=== PATIENT | male | born 1930 | race African-American/Black ===

== ENCOUNTER 2018-10-04 04:05 | Inpatient (IN) | payer OTHER ==
[~2018-10-04] VITALS: Ht 180.3 cm; Wt 106.6 kg
--- NOTE | ~2018-10-04 | O ---
[facility] [place] [address] OPERATIVE REPORT Name: FREDRICK HE Edelmira Room #: 208-P [facility] IN M.R.#: [id number] Admission: 10/04/18 ������������������ Attend Phys: Evan Wisdom MD Discharge: ������������������ Date of : [birth year] Report #: [id number] THIS REPORT FOR: //name// CC: FAM unknown Evan Wisdom DATE OF SERVICE: 10/09/2018 PREOPERATIVE DIAGNOSIS: Chronic cholecystitis. POSTOPERATIVE DIAGNOSIS: Chronic cholecystitis. PROCEDURE: Laparoscopic cholecystectomy. SURGEON: Keagan Ignacio MD ANESTHESIA: General. ESTIMATED BLOOD LOSS: Minimal. SPECIMEN: Gallbladder. DESCRIPTION OF PROCEDURE: After informed consent was obtained, the patient was brought to the operating room and placed supine. SCDs were placed and working, preoperative antibiotics were administered, general anesthesia was induced. The abdomen was prepped and draped in the usual sterile fashion. A 10 mm incision was made above the umbilicus. Fascia was incised and a trocar was placed. Pneumoperitoneum was established. There were some adhesions around the umbilicus, which were taken down bluntly. This was of omentum. Three right upper quadrant 5 mm ports were placed. The patient was placed in reverse Trendelenburg position. The gallbladder was grasped and retracted cephalad. Infundibulum was grasped and retracted laterally. I dissected out the cystic duct and cystic artery. Cystic duct and artery were clipped and ligated leaving 2 clips on the remaining duct and one on the remaining artery. Gallbladder was then taken off the liver bed with electrocautery. It was placed into an Endopouch and removed. The fascia was then closed with a [id number] 0 Vicryl. Skin was closed with 4-0 Monocryl. Incisions were sealed with Dermabond. COMPLICATIONS: None. DISPOSITION: The patient was taken to recovery in satisfactory condition. ��������������������������������������������� ���������������������������������������� By: ��������������������������������������������� 1232 1237 Keagan Ignacio MD /nt
[2018-10-04 04:20] VITALS: BP 158/60
[2018-10-04] MEDS ORDERED: LIPITOR10 MG PO (04:27)
[2018-10-04] MEDS ORDERED: LISINOPRIL20 MG PO (04:28)
[2018-10-04] MEDS ORDERED: SYNTHROID112 MC1 PO (04:28)
[2018-10-04] MEDS ORDERED: HYDRALAZINE 2525 MG PO (04:29)
[2018-10-04] MEDS ORDERED: NISOLDIPINE34 MG PO (04:30)
[2018-10-04] MEDS ORDERED: ASPIR 8181 MG PO (04:30)
[2018-10-04 05:12] LABS: HEMOGLOBIN 11.9 gm/dL (14.0-18.0); PLATELET COUNT 147 thou/uL (150-400); RDW 14.9 % (10.5-14.5)
[2018-10-04 05:14] LABS: HEMATOCRIT 36.5 % (42.0-52.0); MCH 28.6 pg (26.0-34.0); MCHC 32.7 g/dL (28.0-37.0); MCV 87.3 fL (80.0-100.0); RBC 4.18 mil/uL (4.50-6.00)
[2018-10-04 05:19] LABS: CALCIUM 9.4 mg/dL (8.5-10.1); CREATININE 2.1 mg/dL (0.7-1.3); POTASSIUM 3.2 mmol/L (3.5-5.1)
[2018-10-04 05:23] LABS: WBC 1.8 thou/uL (4.0-11.0)
[2018-10-04 06:13] LABS: ABSOLUTE NEUTROPHILS 1.5 thou/uL (1.4-8.2)
[2018-10-04 06:14] LABS: ANISOCYTOSIS 1+; PLATELET ESTIMATE DECREASED; POIKILOCYTOSIS 1+; POLYCHROMASIA 1+
[2018-10-04 06:17] LABS: URINE BILIRUBIN NEGATIVE (Negative); URINE BLOOD TRACE (Negative); URINE CLARITY CLEAR; URINE COLOR YELLOW; URINE GLUCOSE-RANDOM* NEGATIVE (Negative); URINE KETONES TRACE (Negative); URINE NITRITE-REFLEX NEGATIVE (Negative); URINE PROTEIN (DIPSTICK) 2+ (Negative); URINE SPECIFIC GRAVITY 1.015 (1.005-1.035)
[2018-10-04 06:19] LABS: URINE LEUKOCYTES-REFLEX 1+ (Negative)
[2018-10-04 06:26] LABS: CASTS None Seen /LPF (None Seen); MUCUS 4-6 Moderate strn/LPF (None Seen); SQUAMOUS 4-10 Moderate /LPF (0-3)
[2018-10-04 06:27] LABS: URINE RBC 0-2 Rare /HPF (0-2)
[2018-10-04 06:28] LABS: CRYSTALS None Seen /LPF (None Seen)
[2018-10-04 09:02] LABS: ALBUMIN 3.4 g/dL (3.4-5.0); TOTAL PROTEIN 6.4 g/dL (6.4-8.2)
[2018-10-04 09:35] LABS: TSH 27.322 uIU/mL (0.358-3.740)
[2018-10-04 13:38] VITALS: BP 117/52
[2018-10-04 14:00] VITALS: BP 109/55
[2018-10-04 14:01] VITALS: BP 109/55
[2018-10-04 14:20] VITALS: BP 129/65
--- NOTE | 2018-10-04 17:31 | NUR ---
PT WAS AN ADMIT FOR SEPSIS ON ANTIBIOTICS FROM EMERGENCY ROOM . VS STABLE FAMILY AT BEDSIDE FOR SUPPORT. LUNGS ARE CLEAR. ABDOMEN SOFT EATING A HEART HEALTHY DIET. UP TO BATHROOM WITH ASSIST TO BSC DIARHEA X1. TEMPERATURE LOW GRADE. SCDS ON BIALTERAL. CALL LIGHT WITHIN REACH IF NEEDS ASSISTANCE FROM STAFF. WILL CONTINUE TO ASSESS AND MONITOR PER NURSING
[2018-10-04 20:05] VITALS: BP 107/54
[2018-10-05 04:41] LABS: CALCIUM 8.6 mg/dL (8.5-10.1); HEMATOCRIT 31.7 % (42.0-52.0); HEMOGLOBIN 10.6 gm/dL (14.0-18.0); MAGNESIUM 1.6 mg/dL (1.8-2.4); MCHC 33.5 g/dL (28.0-37.0); MCV 86.4 fL (80.0-100.0); RBC 3.67 mil/uL (4.50-6.00)
[2018-10-05 04:45] VITALS: BP 120/53
[2018-10-05 04:45] LABS: CREATININE 3.4 mg/dL (0.7-1.3); POTASSIUM 4.4 mmol/L (3.5-5.1)
[2018-10-05 04:48] LABS: WBC 22.6 thou/uL (4.0-11.0)
[2018-10-05 05:30] LABS: HEMATOCRIT 31.7 % (42.0-52.0); HEMOGLOBIN 10.3 gm/dL (14.0-18.0); MCH 28.4 pg (26.0-34.0); MCHC 32.6 g/dL (28.0-37.0); RBC 3.64 mil/uL (4.50-6.00); RDW 14.8 % (10.5-14.5)
[2018-10-05 05:41] LABS: CALCIUM 8.4 mg/dL (8.5-10.1); CREATININE 3.4 mg/dL (0.7-1.3); POTASSIUM 4.3 mmol/L (3.5-5.1)
--- NOTE | 2018-10-05 06:05 | NUR ---
PATIENTS CARES WERE ASSUMED AT SHIFT CHANGE. PATIENT WAS ASSESSED AND MEDS WERE PASSED. PATIENT DID GO FOR A CT WITH CONTRAST.LAD WORK WAS NOT NELIEVED MY NURSE PRACTIONER REDRAWS WERE ORDER FOR BMP AND CBC. HOURLY ROUNDING WAS DONE .THE BED IS IN A LOW AND LOCKED POSITION.
[2018-10-05 07:52] VITALS: BP 109/50
--- NOTE | 2018-10-05 11:17 | NUR ---
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 NPO FOR U/S OF ABDOMEN. NO COMPLAINTS OF PAIN OR NAUSEA OR DIZZINESS. APACED ON MONITOR INTERMITTENTLY. STAND BY ASSIST TO CHAIR. LITTLE DIFFICULTLY GETTING OUT OF BED BUT ONCE HE IS UP HE SEEMS STEADY. PER DR. MCKINNEY'S ORDER, BLADDER SCAN COMPLETED. < 50CC NOTED. PATIENT INSTRUCTED TO USE URINAL SO THAT WE CAN MEASURE OUTPUT. VERBALIZED UNDERSTANDING
--- NOTE | 2018-10-05 12:24 | HC ---
[facility] [place] [address] CONSULTATION Name: FREDRICK HE Edelmira Room #: 210-[facility] IN .R.#: [id number] Admission: 10/04/18 ������������������ Attend Phys: Evan Wisdom MD Discharge: ������������������ Date of : [birth year] Report #: [id number] THIS REPORT FOR: //name// CC: FAM unknown Evan Wisdom DATE OF SERVICE: 10/04/2018 INFECTIOUS DISEASE CONSULTATION REASON FOR CONSULTATION: I was asked to evaluate the patient concerning sepsis. HISTORY OF PRESENT ILLNESS: The patient is an 88-year-old with underlying history of hypertension, remote history of colon cancer and prostate cancer who presents with acute onset of rigors, fever, nausea and diarrhea presented to the Emergency Room and had a temperature of 38 degrees. He had a mild headache. No dysuria, frequency or hematuria. He was tachycardic on admission, but maintained adequate blood pressure. He was given IV fluids. Now in the CCU. He states feeling better. No further nausea. No further diarrhea. Denied any blood in his stool. No prior history of diverticular disease. No history of pyelonephritis. He does have a history of prostate cancer in the 1990s. He also had a colon resection for colon cancer during that same time period. He has had to travel to [place] last week. Lives with his . He has not had any issues with fever. Ate out two days ago. REVIEW OF SYSTEMS: Ten-point review is negative other than what is described above. He does note dyspnea with intermittent cough. No pleuritic chest pain. No sputum production. No palpitations or chest pain. ALLERGIES: None. MEDICATIONS: As noted on his MAR, now on Zosyn and azithromycin. PAST MEDICAL HISTORY: Hypertension, hyperlipidemia, hypothyroidism, colon cancer and prostate cancer. FAMILY HISTORY: Noncontributory. SOCIAL HISTORY: Nonsmoker, no significant alcohol intake. Retired from the . No animal exposure. No exposure to other ill persons. No tuberculosis exposure or HIV risk. PHYSICAL EXAMINATION: VITAL SIGNS: He was afebrile and hemodynamically stable. GENERAL: He is alert and cooperative and pleasant, in no acute distress. [facility] [address] [place] [address] CONSULTATION Name: FREDRICK HE Edelmira Room #: 210-P [facility] IN .R.#: [id number] Admission: 10/04/18 ������������������ Attend Phys: Evan Wisdom MD Discharge: ������������������ Date of : [birth year]/16/[birth year] Report #: [id number] Sitting up in his chair. He was obese. No peripheral adenopathy. No rashes or decubiti. HEENT: Eyes without scleral icterus. Mouth without mucositis. NECK: Supple, with no thyromegaly or mass. LUNGS: Few crackles in the bases bilaterally. HEART: Regular, without murmur, gallop or rub. ABDOMEN: Obese, soft, nontender with no hepatosplenomegaly or mass. No CVA tenderness. GENITALIA: External genitalia without mass lesion. RECTAL: Not performed. EXTREMITIES: Without clubbing, cyanosis or edema. Cranial nerves are intact. Strength in the upper and lower extremities are normal. NEUROLOGIC: Sensation intact. Mood is normal. LABORATORY STUDIES: Reviewed. Blood cultures 1 of 2 showing gram-negative bacilli. Urinalysis with pyuria and bacteriuria. Chest x-ray with basilar atelectasis, left chest permanent pacemaker. Lactate 4.4. TSH 27. Procalcitonin 0.9. IMPRESSION: 1. An 88-year-old with sepsis syndrome associated with gram-negative bacteremia 2. Acute kidney injury 3. Leukopenia. Source of which I am suspecting either pyelonephritis or intra-abdominal infection. 4. Hypertension. 5. Hyperlipidemia. 6. Permanent pacemaker. 7. Hypothyroidism. 8. Previous history of colon cancer and prostate cancer. RECOMMENDATIONS: We will continue with Zosyn. Serial laboratory studies. Remain in ccu for critical monitoring, 02 sats and fluid replacement. Image his abdomen and pelvis further with ct noncontrast. Adjust antibiotics pending cultures. Patient at risk for further complications. 60min. ��������������������������������������������� <ELECTRONICALLY SIGNED> ���������������������������������������� By: Salomón Sawant MD ��������������������������������������������� 10/05/18 1224 2202 0215 Salomón Sawant MD /nt
[2018-10-05 12:44] VITALS: BP 103/42
[2018-10-05 14:27] VITALS: BP 92/46
--- NOTE | 2018-10-05 15:07 | NUR ---
Chart reviewed and case discussed with the care team. Pt is sleeping this afternoon and spouse is not at bedside at this time. Pt lives at home with his spouse in a tri level home with 2 steps to enter. He is normally indep with gait and adl's and still drives. He helps with errands and some housekeeping. PT/OT evals noted. No assistive device or hh prior to admission. Will follow along should a home health referral be indicated at [place].
[2018-10-05 19:50] VITALS: BP 103/50
[2018-10-06 03:52] VITALS: BP 149/76
[2018-10-06 05:25] LABS: CREATININE 2.7 mg/dL (0.7-1.3); MAGNESIUM 1.9 mg/dL (1.8-2.4); POTASSIUM 3.8 mmol/L (3.5-5.1)
[2018-10-06 05:42] LABS: HEMATOCRIT 30.9 % (42.0-52.0); HEMOGLOBIN 10.2 gm/dL (14.0-18.0); MCH 28.5 pg (26.0-34.0); MCHC 33.1 g/dL (28.0-37.0); MCV 86.1 fL (80.0-100.0); RBC 3.59 mil/uL (4.50-6.00); RDW 14.8 % (10.5-14.5); WBC 20.5 thou/uL (4.0-11.0)
[2018-10-06 07:32] VITALS: BP 134/63
--- NOTE | 2018-10-06 08:21 | NUR ---
[facility]. PT/VITALS STABLE. BP RUNS SOFT. UP TO BATHROOM STB. DENIES ANY PAIN. ASSESSMENT CHARTED. ADEQUATE REST NOTED THROUGH NIGHT. TOLERATES CPAP AT NIGHT. PROGRESSING WELL WITH POC. PLAN IS TO CONTINUE WITH FLUIDS AND ANTIBIOTICS. WILL CONTINUE TO MONITOR AND FOLLOW WIHT POC
[2018-10-06 12:04] VITALS: BP 118/56
[2018-10-06 15:19] VITALS: BP 122/66
--- NOTE | 2018-10-06 16:21 | NUR ---
ASSUMED CARE AT 0700, SHIFT ASSESSMENT DONE, DENIES ANY PAIN, NAUSEA, VOMITING. UP WITH STANDBY ASSIST, SITTING IN THE CHAIR THIS AM. A-PACED ON THE MONITOR. HAD 700 ML OF URINE OUTPUT SO FAR OF 1630. ON IV FLUIDS AND ANTIBIOTICS. WILL CONTINUE TO ASSESS AND ASSIST WITH ADLs NEEDED.
[2018-10-06 20:15] VITALS: BP 152/58
--- NOTE | 2018-10-07 03:03 | NUR ---
ASSESSMENT: PT REMAIN ALERT AND ORIENT TIMES THREE. TWO SONS WERE AT THE BEDSIDE AT THE BEGINNING OF THE SHIFT. VSS, AFEBRILE. 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 POSSIBLE PIPIDA TEST FOR MONDAY. A-PACED PER MONITOR.. DENIES PAIN, SOB AND N/V. SLOW PROGRESS, WILL CONTINUE TO MONITOR.
[2018-10-07 04:45] VITALS: BP 154/83
[2018-10-07 05:50] LABS: HEMOGLOBIN 10.6 gm/dL (14.0-18.0); MCH 28.5 pg (26.0-34.0); MCHC 33.1 g/dL (28.0-37.0); MCV 86.2 fL (80.0-100.0); RBC 3.71 mil/uL (4.50-6.00); RDW 14.8 % (10.5-14.5)
[2018-10-07 05:58] LABS: ALBUMIN 2.3 g/dL (3.4-5.0); CALCIUM 8.2 mg/dL (8.5-10.1); CREATININE 1.8 mg/dL (0.7-1.3); MAGNESIUM 2.6 mg/dL (1.8-2.4); TOTAL BILIRUBIN 0.3 mg/dL (<0.1-1.0); TOTAL PROTEIN 5.7 g/dL (6.4-8.2)
[2018-10-07 07:03] VITALS: BP 134/66
[2018-10-07 11:26] VITALS: BP 127/58
--- NOTE | 2018-10-07 12:13 | HC ---
[facility] [place] [address] CONSULTATION Name: FREDRICK HE Room #: 210-[facility] IN ..#: [id number] Admission: 10/04/18 ������������������ Attend Phys: Evan Wisdom MD Discharge: ������������������ Date of : [birth year]/16/[birth year] Report #: [id number] THIS REPORT FOR: //name// CC: FAM unknown Evan Wisdom ENDOCRINE CONSULTATION The patient of Dr. Wisdom. SUBJECTIVE: An 88-year-old black male admitted for sepsis. Incidentally, the patient was found to have abnormal thyroid function studies, necessitating endocrine consultation. The patient is an extremely poor and forgetful historian and much of the information is taken from his who has more appropriate history available. The patient was diagnosed with hypothyroidism "many" years ago and has been on a variety of different doses of replacement since that time. He does not remember his current dosage, whether he is receiving 112 mcg of L-thyroxine during his hospitalization. The patient states he takes the medication at night along with several other agents including a multivitamin. He does admit to occasionally forgetting to take his dosage and does not make up missed doses. He remembers that approximately 4 months ago, he was told to take a larger dose of replacement, but does not know any of the dosage strength. Otherwise, the patient has no family history of thyroid disease and is unable to provide any other further endocrine history. OBJECTIVE: LABORATORY DATA: Since admission, free T4 was 1.0 and TSH was elevated at 27.3. There are no prior studies available for comparison. PHYSICAL EXAMINATION: Well-nourished, well-developed 88-year-old black male in no acute distress. The patient is alert, but unable to give a lucid answers to many questions. she is afebrile, heart rate 70 and regular, blood pressure 110/40. The thyroid is minimally enlarged without nodularity. It moves well with deglutition. Deep tendon reflexes are 2+ and equal bilaterally and the remainder of the exam is euthyroid. ASSESSMENT: Prior history of hypothyroidism with inadequate replacement. This may be due to the fact that the patient is taking his medication concurrently with the vitamins, which can conflict with thyroid replacement. In addition, he admits to missing "some" doses, which could obviously due to abnormal thyroid function studies. The patient's free T4 is in the low normal range. His TSH is only an indicator, was most likely missed doses, not inappropriate dosage. PLAN: I have discussed all the above with the patient and his family. I would suggest keeping a current replacement and repeating thyroid function studies at a later date. The patient will move his administration time to the morning, 30 minutes prior to any potential conflicting substances, totally accurate results [address] [address] CONSULTATION Name: FREDRICK HE Room #: 210-P [facility] IN M.R.#: [id number] Admission: 10/04/18 ������������������ Attend Phys: Evan Wisdom MD Discharge: ������������������ Date of : 06/16/30 Report #: [id number] will not be available before full 6 weeks from this administration change; however, it may be possible to check thyroid function at a later date to see whether it is progressing normally in an appropriate fashion. Thank you very much for this consultation. I will continue to follow the patient with you for thyroid disease. ��������������������������������������������� <ELECTRONICALLY SIGNED> ���������������������������������������� By: Yared Guerrero MD ��������������������������������������������� 10/07/18 1213 1416 2254 Yared Guerrero MD /nt
--- NOTE | 2018-10-07 12:59 | NUR ---
ASSUMED CARE AT 0700, SHIFT ASSESSMENT DONE, MEDS GIVEN, VSS. DENIES ANY PAIN, NAUSEA, VOMITING. ROOM AIR, LIZZETH ASSIST. APACED ON THE TELE. ACHS, WITHHOUT ANY COVERAGE. UP AND SITTING IN THE CHAIR THIS AM. RECEIVING IV FLUIDS AND ANTIBIOTCS. GENERAL SURGERY CONSULT, AWAITING TO BE SEEN. WILL CONTINUE TO ASSESS AND ASSIST WITH ADLs NEEDED.
[2018-10-07 15:27] VITALS: BP 142/52
[2018-10-07 20:40] VITALS: BP 149/60
[2018-10-08 05:13] LABS: HEMOGLOBIN 10.4 gm/dL (14.0-18.0); MCH 28.8 pg (26.0-34.0); MCHC 33.5 g/dL (28.0-37.0); MCV 85.7 fL (80.0-100.0); RBC 3.61 mil/uL (4.50-6.00); RDW 14.9 % (10.5-14.5); WBC 11.8 thou/uL (4.0-11.0)
[2018-10-08 05:31] LABS: CALCIUM 8.4 mg/dL (8.5-10.1); CREATININE 1.6 mg/dL (0.7-1.3); MAGNESIUM 2.5 mg/dL (1.8-2.4)
[2018-10-08 05:39] LABS: ALBUMIN 2.3 g/dL (3.4-5.0); CALCIUM 8.6 mg/dL (8.5-10.1); CREATININE 1.6 mg/dL (0.7-1.3); PHOSPHORUS 2.6 mg/dL (2.5-4.9); POTASSIUM 3.9 mmol/L (3.5-5.1)
[2018-10-08 05:40] VITALS: BP 156/72
[2018-10-08 07:28] VITALS: BP 156/96
--- NOTE | 2018-10-08 11:27 | NUR ---
Assess due to dx of sepsis likely GI source. Possible lap reyna. Overweight status, appetite >75% of meals. On B12 replacement for low level 180. Low nutrition risk at this time
[2018-10-08 12:34] VITALS: BP 173/62
[2018-10-08 15:40] VITALS: BP 138/60
--- NOTE | 2018-10-08 16:07 | NUR ---
ASSESSMENT CHARTED, VSS, ALERT AND ORIENTED, [place], NO COMPLAINTS OF PAIN, NS INFUSING IN R FA, WILL CONTINUE TO MONITOR
[2018-10-08 20:59] VITALS: BP 135/74
[2018-10-09 06:00] VITALS: BP 160/73
[2018-10-09 07:40] VITALS: BP 183/83
--- NOTE | 2018-10-09 08:09 | NUR ---
PT UP WITH ASSIST TO BR TO SHAVE AND CLEAN UP FOR BED THEN SLEPT WITHOUT ANY DIFFICULTY WITH HOME CPAP THRU THE NOC, NO C/O PAIN, VOIDING PER URINAL, VSS, NPO SINCE MNOC FOR PLANNED PROCEDURE TODAY, WILL CON'T TO MONITOR PER PPOC.
[2018-10-09 08:46] VITALS: BP 175/69
--- NOTE | 2018-10-09 11:52 | NUR ---
ASSUMED CARE AT 0700, SHIFT ASSESSMENT DONE, A&O*4, VERY HARD OF HEARING. NPO SINCE LAST NIGHT FOR LAP JURGEN TODAY. BP THIS AM WAS HIGH, BP MEDS GIVEN WITH SIPS OF WATER. ROOM AIR, M/S. DENEIS ANY PAIN, NAUSEA, VOMITING. LEFT FOR SURGERY AT 0930. WILL CONTINUE TO ASSESS AND ASSIST WITH ADLs NEEDED.
[2018-10-09 15:55] VITALS: BP 151/79
--- NOTE | 2018-10-09 16:08 | NUR ---
patient to have sx lapchole today. Therapy to eval tenative plan home with .
--- NOTE | 2018-10-09 17:31 | NUR ---
CAME BACK FROM SURGERY AT 1300. AT 1400 WHEN PATTIENT WAS ROUNDED ON, LAP JURGEN SITE RIGHT ABOVE THE BELLY BUTTON WAS OPEN AND BLEEDING. STERISTIPS WAS APPLIED AND COVERED WITH A 4*[address] HAGEN WAS INFORMED AND HE AGREED WITH THE ORDER, GAVE INSTRUCTIONS TO KEEP MONITORING THE SITE FOR BLEEDING AND KEEP IT WELL APPROXIMATED. REPORED PAIN, PRN PAIN MEDS GIVEN. VOIDING WELL PER URINAL. WILL CONTINUE TO ASSESS AND ASSIST WITH ADLs NEEDED.
[2018-10-09 20:45] VITALS: BP 152/84
[2018-10-10 00:45] VITALS: BP 146/65
--- NOTE | 2018-10-10 05:36 | NUR ---
PT RESTING QUIETLY IN ROOM THRU THE NOC, PRN PAIN MED GIVEN AT HS FOR INCISIONAL PAIN, HOME CPAP TOLERATED THRU THE NOC, VSS, INCISIONS REMAIN CDI, WILL CON'T TO MONITOR PER PPOC.
[2018-10-10 08:20] VITALS: BP 176/83
[2018-10-10] MEDS ORDERED: AUGMENTIN 875-1 EACH PO (09:19)
[2018-10-10] MEDS ORDERED: MIRALAX17 GM PO (09:20)
--- NOTE | 2018-10-10 12:53 | NUR ---
PT OFF UNIT TO OR.
[2018-10-10 14:27] VITALS: BP 176/83
--- NOTE | 2018-10-10 15:01 | NUR ---
IV AND TELE DISOCNTINUED. PT UNDERSTANDS ALL FOLLOW UP ORDERS.
--- NOTE | 2018-10-11 16:06 | PATH ---
[facility] [place] [address] PATHOLOGY RPT PROCEDURE Name: KALIN LYLES W Room #: 208-P [facility] IN ..#: [id number] ������������������ Admission: 10/04/18 ������������������ Date of : [birth year]/16/30 Discharge: 10/10/18 Report #: [id number] Path Case #: [id number] [facility] Accession Number: [id number] . 01 Material submitted: . gallbladder - GALLBLADDER . 01 Clinical history: . Cholecystitis. . 02 Diagnosis: Gallbladder, cholecystectomy: - Chronic cholecystitis. - No gallstones present. . (GABEM:tiara; 10/10/2018) [facility]/10/10/2018 . 02 Electronically signed: . Ko Ojeda MD, Pathologist NPI- [id number] . 01 Gross description: . Received in formalin labeled "Kalin Lyles gallbladder" is an intact cholecystectomy specimen measuring 10.8 x 3.6 x 2.0 cm. The serosa is pink-sinclair and smooth and the specimen is opened to reveal yellow-sinclair and velvety mucosa without polyps or masses. The average wall thickness is 0.1 cm. Calculi are not present. [employer] sections of the fundus and body and the cystic duct margin are submitted in A1. ([facility]; 10/09/2018) SYC/SYC . 02 Pathologist provided ICD-10: K81.1 . 02 CPT . 805764 Specimen Comment: A courtesy copy of this report has been sent to Specimen Comment: [phone], . Specimen Comment: Report sent to / DR MCKINNEY Specimen Comment: A duplicate report has been generated due to demographic updates. Performed at: 01 [place] [id number] [id number] MD Ken Swanson MD Phone: [phone] Performed at: 02 [facility] [address] [place] [address] PATHOLOGY RPT PROCEDURE Name: KALIN LYLES Room #: 208-P [facility] IN .R.#: [id number] ������������������ Admission: 10/04/18 ������������������ Date of : [birth year]/16/[birth year] Discharge: 10/10/18 Report #: [id number] Path Case #: [id number] [address] [place], [place] [id number] MD Shantelle Salazar MD Phone: [phone]
== END 2018-10-10 15:09 | disposition home health service (06) | DRG 853 ==
LOC: ER 04:05 → 2N 08:44 → EROBS 08:44 → 2N 14:02
PROVIDERS: Emergency Medicine; Hospitalist; Nurse Practitioner Family; ADMIT Internal Medicine
PROC: 0FT44ZZ Resection of Gallbladder, Percutaneous Endoscopic Approach (ICD-10-PCS; principal; 2018-10-09)
DX: A41.50 Gram-negative sepsis, unspecified (principal); N17.0 Acute kidney failure with tubular necrosis; N12 Tubulo-interstitial nephritis, not specified as acute or chronic; K81.1 Chronic cholecystitis; E78.5 Hyperlipidemia, unspecified; E03.9 Hypothyroidism, unspecified; E66.9 Obesity, unspecified; E78.00 Pure hypercholesterolemia, unspecified; R65.20 Severe sepsis without septic shock; J44.9 Chronic obstructive pulmonary disease, unspecified; I16.0 Hypertensive urgency; E87.6 Hypokalemia; E83.42 Hypomagnesemia; E53.8 Deficiency of other specified B group vitamins; N20.0 Calculus of kidney; K82.8 Other specified diseases of gallbladder; E16.2 Hypoglycemia, unspecified; N18.9 Chronic kidney disease, unspecified; I12.9 Hypertensive chronic kidney disease with stage 1 through stage 4 chronic kidney disease, or unspecified chronic kidney disease; B96.89 Other specified bacterial agents as the cause of diseases classified elsewhere; R19.7 Diarrhea, unspecified; Z95.0 Presence of cardiac pacemaker; Z79.82 Long term (current) use of aspirin; Z79.899 Other long term (current) drug therapy; Z85.46 Personal history of malignant neoplasm of prostate; Z85.038 Personal history of other malignant neoplasm of large intestine; Z90.49 Acquired absence of other specified parts of digestive tract; Z68.32 Body mass index [BMI] 32.0-32.9, adult
CPT/HCPCS: 10081; 10797; 50010; 50101; 50411; 50555; 50819; 51489; 52265; 52266; 53307; 53312; 53314; 54118; 55245; 56462; 56525; 56526; 62110; 62900; 65131; 70005